=== PATIENT | female | born 1950 | race Two or more races ===

== ENCOUNTER 2023-09-10 08:24 | Inpatient (IN) | payer OTHER ==
[~2023-09-10] VITALS: Ht 162.6 cm; Wt 97.1 kg
[2023-09-10] MEDS ORDERED: COZAAR25 MG PO (08:31)
[2023-09-10] MEDS ORDERED: ATORVASTATIN CA10 MG PO (08:32)
[2023-09-10] MEDS ORDERED: HYDRODIURIL12.5 MG PO (08:34)
[2023-09-10 09:34] LABS: HEMATOCRIT 39.7 % (36.0-45.00); HEMOGLOBIN 13.7 g/dL (12.0-15.00); MEAN CELL VOLUME 90.1 fL (80.00-100.00); MEAN CORPUSCULAR HEMOGLOBIN 31.1 pg (27.00-32.0); MEAN CORPUSCULAR HGB CONC 34.6 g/dl (32.0-36.0); RED CELL DISTRIBUTION WIDTH 13.6 % (11.5-14.5)
[2023-09-10 09:35] LABS: PLATELET COUNT 129 K/uL (150-450)
[2023-09-10 09:59] LABS: INR 1.03; PARTIAL THROMBOPLASTIN TIME 28.2 SECONDS (22.0-34.0); PROTHROMBIN TIME 10.8 SECONDS (9.0-11.5)
[2023-09-10 10:01] LABS: ALBUMIN 3.7 gm/dL (3.4-5.0); BILIRUBIN TOTAL 2.28 mg/dL (0.3-1.2); CALCIUM 10.1 mg/dL (8.5-10.1); CREATININE SERUM 0.81 mg/dL (0.55-1.02); GFR 69.31; GLOBULINA 3.9 G/DL (2.4-3.5); TOTAL PROTEIN 7.6 gm/dL (6.4-8.2)
[2023-09-10] MEDS ORDERED: KETOROLAC TROMETHAMINE 30 MG VIAL IV STA (10:23)
[2023-09-10 10:57] LABS: POTASSIUM 2.68 mEq/L (3.5-5.1)
[2023-09-10] MEDS ORDERED: FAMOTIDINE/PF 20 MG/2 ML VIAL IV SCH (12:27)
[2023-09-10] MEDS ORDERED: 0.9 % SODIUM CHLORIDE 1,000 ML IV SCH (12:30)
[2023-09-10] MEDS ORDERED: ENALAPRILAT DIHYDRATE 1.25 MG/ML VIAL IV PRN (12:30)
[2023-09-10] MEDS ORDERED: POTASSIUM CHLORIDE IN 0.9%NACL 1,000 ML IV ONE (12:45)
[2023-09-10 18:46] LABS: CKMB < 1.0 NG/ML (0.5-3.6)
[2023-09-11 14:11] LABS: ALBUMIN 3.4 gm/dL (3.4-5.0); BILIRUBIN TOTAL 1.9 mg/dL (0.3-1.2); CALCIUM 9.1 mg/dL (8.5-10.1); CREATININE SERUM 0.72 mg/dL (0.55-1.02); GFR 79.85; GLOBULINA 3.2 G/DL (2.4-3.5); POTASSIUM 3.21 mEq/L (3.5-5.1); TOTAL PROTEIN 6.6 gm/dL (6.4-8.2)
[2023-09-11 14:14] LABS: ABG PH 7.492 (7.35-7.45); ABG PO2 97.4 mmHg (80-100); ABG pCO2 31.3 mmHg (35-45); BASE EXCESS 1.1 mmol/l; BICARBONATE 23.5 mmol/l (23-25); SaO2 97.4 %; Tco2 24.4 mmol/l; allen test SATISFACTORY; puncture site BRADIAL LEFT
[2023-09-11 14:15] LABS: o2 21 %
[2023-09-12] MEDS ORDERED: POTASSIUM BICARBONATE/CIT AC 25 MEQ TABLET.EFF PO SCH (13:00)
[2023-09-13 06:37] LABS: HEMATOCRIT 33.5 % (36.0-45.00); HEMOGLOBIN 11.5 g/dL (12.0-15.00); MEAN CELL VOLUME 91.5 fL (80.00-100.00); MEAN CORPUSCULAR HEMOGLOBIN 31.3 pg (27.00-32.0); MEAN CORPUSCULAR HGB CONC 34.2 g/dl (32.0-36.0); RED BLOOD COUNT 3.66 M/uL (4.00-6.00); RED CELL DISTRIBUTION WIDTH 13.2 % (11.5-14.5)
[2023-09-13] MEDS ORDERED: ACETAMINOPHEN 500 MG GEL..CAP PO PRN (07:45)
[2023-09-13 08:01] LABS: PLATELET COUNT 103 K/uL (150-450)
[2023-09-13 08:08] LABS: CALCIUM 8.6 mg/dL (8.5-10.1); CREATININE SERUM 0.78 mg/dL (0.55-1.02); GFR 72.8; POTASSIUM 3.77 mEq/L (3.5-5.1)
== END 2023-09-13 13:09 | disposition home or self-care (01) | DRG 316 ==
LOC: ER 08:24 → EDBD 10:40 → ER 10:40 → SEC-K 12:50 → MEDI 17:23
PROVIDERS: General Practice; Internal Medicine; ADMIT Internal Medicine; ATTEND Internal Medicine
PROC: 4A12X4Z Monitoring of Cardiac Electrical Activity, External Approach (ICD-10-PCS; principal; 2023-09-10)
PROC: B246ZZZ Ultrasonography of Right and Left Heart (ICD-10-PCS; 2023-09-10)
PROC: B345ZZZ Ultrasonography of Bilateral Common Carotid Arteries (ICD-10-PCS; 2023-09-10)
PROC: B348ZZZ Ultrasonography of Bilateral Internal Carotid Arteries (ICD-10-PCS; 2023-09-10)
PROC: BW40ZZZ Ultrasonography of Abdomen (ICD-10-PCS; 2023-09-11)
DX: I95.9 Hypotension, unspecified (principal); E87.6 Hypokalemia; E86.0 Dehydration; R55 Syncope and collapse; I10 Essential (primary) hypertension